=== PATIENT | female | born 1955 | race Caucasian/White ===

== ENCOUNTER → 2017-06-16 12:34 | Outpatient (CLI) | payer BC ==
[2014-10-06 07:26] VITALS: BMI 37.9
[~2017-06-16 12:34] MED LIST: ALLER-CHLOR4 MG PO; ARMOUR THYROID60 M1 PO; CO Q-1030 MG PO; MULTIPLE VITAMI1 TA1 PO; PERCOCET 10/3251 TA1 PO; VITAMIN D31000 UNIT PO
== END | disposition home or self-care (01) ==
LOC: D.MAMMO 12:34
DX: Z12.31 Encounter for screening mammogram for malignant neoplasm of breast (principal)

== ENCOUNTER 2018-06-18 18:27 | Outpatient (CLI) | payer BC ==
[2014-10-06 07:26] VITALS: BMI 37.9
== END 2018-06-18 18:28 | disposition home or self-care (01) ==
LOC: D.MAMMO 18:27
DX: Z12.31 Encounter for screening mammogram for malignant neoplasm of breast (principal)

== ENCOUNTER 2019-07-04 17:22 | Outpatient (CLI) | payer MEDICARE, BC ==
[2014-10-06 07:26] VITALS: BMI 37.9
== END 2019-07-04 17:23 | disposition home or self-care (01) ==
LOC: D.MAMMO 17:22
PROVIDERS: ATTEND Family Medicine
DX: Z12.31 Encounter for screening mammogram for malignant neoplasm of breast (principal)